=== PATIENT | female | born 1980 | race African-American/Black ===

== ENCOUNTER 2016-06-03 05:38 | Day surgery (SDC) | payer OTHER ==
[~2016-06-03] VITALS: Ht 162.6 cm; Wt 118.8 kg
--- NOTE | ~2016-06-03 | O ---
[facility] [place] [address] OPERATIVE REPORT Name: MEGAN KAPLAN Room #: 150-8 [facility]#: [id number] Admission: 06/03/16 Attend Phys: Negro Nicolas MD Discharge: Date of : 76 Report #: [id number] THIS REPORT FOR: //name// CC: Odessa Henry MD DATE OF SERVICE: 06/03/2016 PREOPERATIVE DIAGNOSIS: Carcinoma, right breast. POSTOPERATIVE DIAGNOSIS: Carcinoma, right breast, final pathology pending. OPERATION: 1. Lymphatic mapping. 2. Right breast segmental resection with wire localization and specimen x-ray. 3. Placement of BioZorb tissue marker. 4. Right axillary sentinel lymph node resection x 3. SURGEON: Negro Nicolas MD. HEALTH AND HUMAN PERFORMANCE PROFESSOR: Kody Kahn MS3. SECOND SEISMIC ENGINEER: Agnieszka Mahoney MS3. ANESTHESIA: General. DESCRIPTION OF PROCEDURE: The patient was taken to Nuclear Medicine and the radiologist injected technetium sulfur colloid into the right breast as per protocol. Lymphoscintigraphy demonstrated a hot spot in the right axilla, which was marked by the radiologist. The radiologist also performed wire localization for the tumor and biopsy clip in the lower outer right breast. The patient was brought to the operating room for a general anesthetic. Lymphatic mapping was performed using the gamma probe and we confirmed the presence of a hot spot in the right axilla, which had a 10-second count of 381. Next, 5 mL of Lymphazurin blue dye were injected into the right breast around the tumor site using sterile technique with alcohol prep. Next, the entire right breast and right axilla were widely prepped with ChloraPrep solution and sterile drapes were applied. A curved circumareolar incision was made in the right lower outer quadrant directly over the anticipated location of the tumor. This was also at the site of the wire insertion. Dissection was carried down through the skin and subcutaneous tissue. A generous lumpectomy or segmental resection was performed in order to remove the breast tissue widely around the shaft and tip of the guidewire as recommended by the radiologist. The specimen was labeled with [facility] [address] [place] [address] OPERATIVE REPORT Name: MEGAN KAPLAN Room #: 150-8 [facility].#: [id number] Admission: 06/03/16 Attend Phys: Negro Nicolas MD Discharge: Date of : 76 Report #: [id number] sutures for orientation purposes. Specimen x-ray confirmed removal of the guidewire and the clip and the tumor together with normal breast tissue all around. The radiologist was happy with the specimen x-ray and so was I. The specimen was given directly to the pathologist. Palpation from within the incision revealed no other suspicious areas. Hemostasis was obtained using electrocautery. We utilized the agri.capitalZorb tissue marker sizer to determine that a 3 x 4 cm BioZorb tissue marker would be a good fit for this lumpectomy. The 3 x 4 cm BioZorb tissue marker was placed into the lumpectomy cavity and was sutured in place using interrupted 3-0 Vicryl. The breast tissue was reapproximated using interrupted 3-0 Vicryl to complete the oncoplastic closure. The skin was approximated using running 4-0 subcuticular PDS. Next, a transverse incision was made in the right axilla near the hotspot location. Dissection was carried down into the axilla with care being taken to avoid injury to the neurovascular structures. We found 3 sentinel nodes, which were each excised, controlling the blood and lymphatic supply using Harmonic scalpel. [place] node #1 had a 10-second count of 1529, it was blue. [place] node #2 had a 10-second count of 162, it was blue. [place] node #3 had a 10-second count of 297, it was also blue. All 3 were submitted to pathology. Palpation revealed no other suspicious nodes nor were there any other blue or radioactive nodes to be found. The post-resection bed count was 10, which was well below 10% of the highest node. Hemostasis was excellent. The incision was closed using running 3-0 Vicryl for the deep layer and running 4-0 PDS for the subcuticular layer. Sterile dressings were applied and the patient was taken to recovery in satisfactory condition. Estimated blood loss was less than 10 mL. By: 1140 [id number] Negro Nicolas MD /nt
--- NOTE | ~2016-06-03 | S ---
[facility] [address] SURGICAL PATH RPT PROCEDURE Name: AIDA KAPLAN Room #: DEP [facility]#: [id number] Admission: 06/03/16 Date of : 76 Discharge: 06/03/16 Report #: [id number] Path Case #: [id number] PATHOLOGY REPORT COLLECTION DATE: 06/03/2016 RECEIVED DATE: 06/03/2016 SUBMITTING PHYS: Dr. Negro Nicolas OTHER PHYS: Dr. Rachelle Henry SPECIMEN(S) RECEIVED: A.Right breast segmental resection B.Right axillary sentinel lymph node #1 C.Right axillary sentinel lymph node #2 D.Right axillary sentinel lymph node #3 * * * * * * * * * * * * FINAL DIAGNOSIS: A. Breast, right breast, segmental resection: - INVASIVE WELL-DIFFERENTIATED DUCTAL ADENOCARCINOMA, SHENG GRADE I, MEASURING 15 MM IN GREATEST DIMENSION AND ASSOCIATED WITH SCLEROSING ADENOSIS. 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 - Margins of resection widely free of invasive malignancy as well as ductal carcinoma in-situ; please see synoptic report. B. Lymph node (one), right axillary sentinel lymph node # 1, biopsy: - Reactive lymph node negative for malignancy. - No isolated tumor cells or micrometastases present on AE1/AE3 immunohistochemical stain (0/1). C. Lymph node (one), right axillary sentinel lymph node # 2, biopsy: - Reactive lymph node negative for malignancy. - No isolated tumor cells or micrometastases present on AE1/AE3 immunohistochemical stain (0/1). D. Lymph node (one), right axillary sentinel lymph node # 3, biopsy: - Reactive lymph node negative for malignancy. - No isolated tumor cells or micrometastases present on AE1/AE3 immunohistochemical stain (0/1). SYNOPTIC CANCER STAGING REPORT Radiologic Finding: Mass or architectural distortion Procedure: Excision with wire-guided localization Lymph Node Sampling: [place] lymph node(s) Specimen Laterality: Right Tumor Site of Invasive Carcinoma: Other: right lateral inferior [facility] [address] [place] [address] SURGICAL PATH RPT PROCEDURE Name: AIDA KAPLAN Room #: [facility]#: [id number] Admission: 06/03/16 Date of : 76 Discharge: 06/03/16 Report #: [id number] Path Case #: [id number] mass Presence of Invasive Carcinoma: Invasive ductal carcinoma (no special type or not otherwise specified) Histologic Grade: Tubule formation: Score 2: 10% to 75% of tumor area forming glandular/tubular structures Nuclear pleomorphism: Score 2: Cells larger than normal with open vesicular nuclei, visible nucleoli, and moderate variability in both size and shape Mitotic Rate: Score 1 (<=3 mitoses per mm2) [place] Histologic Score-Grade I: 3-5 points Ductal Carcinoma In Situ: DCIS is present Negative for extensive intraductal component (EIC) DCIS Architectural Patterns: Cribriform Solid DCIS Necrosis: Not identified Tumor Size: Size of Largest Invasive Carcinoma: Greatest dimension of largest focus of invasion > 1 mm Greatest dimension: 15 mm Additional dimension: 11 mm Additional dimension: 15 mm Skin: Skin is not present No skeletal muscle present Invasive Carcinoma Margins: Margins uninvolved by invasive carcinoma. Distance from closest margin: 6 mm Closest Uninvolved Margin-Lateral Distance of invasive carcinoma to anterior margin: 34 mm Distance of invasive carcinoma to posterior margin: 18 mm Distance of invasive carcinoma to superior margin: 15 mm Distance of invasive carcinoma to inferior margin: 15 mm Distance of invasive carcinoma to medial margin: 35 mm DCIS Margins: Margins uninvolved by DCIS. Distance from closest margin: 5 mm Closest Uninvolved Margin-Lateral Lymph-Vascular Invasion: Not identified Dermal Lymph-Vascular Invasion: No skin present Microcalcifications: Present in DCIS Present in invasive carcinoma Present in non-neoplastic tissue Treatment Effect: No known presurgical therapy Lymph Nodes: Total number of nodes examined [address] [address] SURGICAL PATH RPT PROCEDURE Name: AIDA KAPLAN [place] Room #: DEP [facility].#: [id number] Admission: 06/03/16 Date of : 76 Discharge: 06/03/16 Report #: [id number] Path Case #: [id number] (sentinel and nonsentinel): 3 Micro / Macro Metastases not identified Number of Lymph Nodes with Isolated Tumor Cells (<= 0.2 mm and <= 200 cells) - none Number of [place] Lymph Nodes examined: 3 Method of Evaluation of [place] Lymph Nodes: H-E, multiple levels Method of Evaluation of [place] Lymph Nodes: Immunohistochemistry Estrogen Receptor: Performed on another specimen, number: [id number] Results from other specimen: 95.3% Progesterone Receptor: Performed on another specimen, number: [id number] Results from other specimen: 99.1% HER2 Immunoperoxidase Results: Performed on another specimen, number: [id number] Results from other specimen: 1+ In Situ Hybridization (FISH or CISH) for HER2 Results: Not performed Other Ancillary Studies: Performed on another specimen Specimen (accession number): [id number] Name of test: Ki-67 Results: 1+ TNM Descriptor(s): Primary Tumor (Invasive Carcinoma) (pT): pT1c: Tumor >10 mm but <= 20 mm in greatest dimension Category (pN): pN0 (i-): No regional lymph node metastases histologically, negative IHC Additional Pathologic Findings: Mass associated with the tumor is sclerosing adenosis COMMENT: Immunohistochemical stains are performed. AE1/AE3 performed on block B1: negative for micrometastases and isolated tumor cells; AE1/AE3 performed on block C1: negative for micrometastases and isolated tumor cells; AE1/AE3 performed on block D1: negative for micrometastases and isolated tumor cells. (IUV:csd; d/t: 06/05/2016) [address] [address] SURGICAL PATH RPT PROCEDURE Name: AIDA KAPLAN [place] Room #: DEP [facility] Regulo#: [id number] Admission: 06/03/16 Date of : 76 Discharge: 06/03/16 Report #: [id number] Path Case #: [id number] PATHOLOGIST: Janette Tucker M.D. REPORT ELECTRONICALLY SIGNED BY: Janette Tucker M.D. DATE/TIME: 06/05/2016 16:53 * * * * * * * * * * * * GROSS PATHOLOGY: A.The specimen is received fresh from the OR labeled "Aida Kaplan, right breast segmental resection, long-lateral, short-superficial." Received on an [facility] map with needle localization wire in place, is an oriented lumpectomy specimen weighing 78.8 grams and measuring 7 cm from medial to lateral by 8 cm from anterior/superficial to posterior/deep by 2.5 cm from superior to inferior. The specimen is fixed in formalin. Reported time out of body is 1054 on 06/03/16. Time placed in formalin is 1115 on 06/03/16. The case is discussed with Dr. Negro Nicolas. (CLW:; d/t: 06/03/16) After appropriate fixation time, the specimen is inked as follows: Lateral orange, medial yellow, superior red, inferior blue, posterior black and anterior green. A needle localization wire is identified. Sectioning reveals a poorly circumscribed area of nodularity with a corresponding possible small previous biopsy site, measuring 1.5 x 1.5 x 1.5 cm. This area appears to be 0.1 cm from the lateral margin, 0.3 cm from the inferior margin, 1.5 cm from the superior margin, 3.5 cm from the medial margin, 1.8 cm from the posterior margin, and 3.4 cm from the anterior margin. Sectioning through the remainder of the specimen reveals a bright yellowpale white fibroadipose cut surface with no additional gross abnormalities identified. The area of nodularity with surrounding tissue and closest margins are entirely submitted in cassettes A1-A6. B. The specimen is received in formalin, labeled "Aida Kaplan, right axillary sentinel lymph node #1". Received is a single possible pale tanpink lymph node, measuring 2.5 x 1.5 x 0.8 cm. The lymph node is bisected and entirely submitted in cassette B1. C. The specimen is received in formalin, labeled "Aida Kaplan, right axillary sentinel lymph node #2". Received is a single possible pale tanpink lymph node, measuring 2.0 x 1.5 x 0.6 cm. The lymph node is bisected and entirely submitted in cassette C1. D. The specimen is received in formalin, labeled "Aida Kaplan, right axillary sentinel lymph node #3". Received is a single possible pale tanpink lymph node, measuring 1.2 x 1.0 x 0.5 cm. The lymph node is bisected and entirely submitted in cassette D1. ([facility]; 06/04/2016) INTRAOPERATIVE CONSULTATION (Yousuf Nicholas M.D.) [address] [address] SURGICAL PATH RPT PROCEDURE Name: AIDA KAPLAN [id number] Admission: 06/03/16 Date of : 76 Discharge: 06/03/16 Report #: [id number] Path Case #: [id number] "Right breast segmental resection": - Oriented breast lumpectomy specimen received and fixed in formalin. (YOLIS:; d/t: 06/03/16) Testing performed by [facility] at [facility] [address], [place] [address] CLINICAL HISTORY: Right breast CA INITIAL CPT CODE(S): A; 88686, 12787 B; 16895, 85478 C; 55169, 36273 D; 35429, 08571 Professional services performed by [facility] at [facility] [address], [place] [address] Technical services performed by [facility] at [address] [place] [address], [address] [address]. [facility] [address] [place] [address] PHONE: [phone] DIRECTOR: Abebe Cedillo M.D. * * * END OF REPORT * * *
[~2016-06-03 05:38] MED LIST: AUGMENTIN 875875 MG PO; COLACE100 MG PO; HYDROCODONE-AP1 EAC6 PO; NORCO 5-325 TA1 EACH PO; NORVASC5 MG PO; OMEPRAZOLE40 MG PO; VICODIN 5-5001 EACH PO
[2016-06-03 07:09] LABS: HEMATOCRIT 37.9 % (37.0-47.0); HEMOGLOBIN 12.6 gm/dL (12.0-15.0); MCH 30.4 pg (26.0-34.0); MCHC 33.2 g/dL (28.0-37.0); MCV 91.6 fL (80.0-100.0); RBC 4.13 mil/uL (4.20-5.00); RDW 14.6 % (10.5-14.5); WBC 5.3 thou/uL (4.0-11.0)
[2016-06-03 07:21] LABS: CALCIUM 8.6 mg/dL (8.5-10.1); CREATININE 0.9 mg/dL (0.6-1.0); POTASSIUM 3.8 mmol/L (3.5-5.1)
[2016-06-03 07:25] LABS: ALBUMIN 3.7 g/dL (3.4-5.0); TOTAL BILIRUBIN 0.3 mg/dL (<0.1-1.0); TOTAL PROTEIN 8.2 g/dL (6.4-8.2)
[2016-06-03 07:30] VITALS: BP 129/89
== END 2016-06-03 13:00 | disposition home or self-care (01) ==
LOC: OR → TBA 05:38 → OR 05:38
PROVIDERS: Specialist
DX: C50.911 Malignant neoplasm of unspecified site of right female breast (principal); I10 Essential (primary) hypertension; G47.33 Obstructive sleep apnea (adult) (pediatric); K21.9 Gastro-esophageal reflux disease without esophagitis
CPT/HCPCS: 50010; 50101; 50386; 50403; 52190; 53332; 56524; 56526; 62110; 62900; 70005

== ENCOUNTER → 2017-03-31 | Outpatient (CLI) | payer OTHER | LOC: RAD 09:36 | DX: R92.8 Other abnormal and inconclusive findings on diagnostic imaging of breast (principal) ==

== ENCOUNTER → 2017-09-29 | Outpatient (CLI) | payer OTHER | LOC: MRI 09:46 → EDSTATUS 15:22 | DX: C50.911 Malignant neoplasm of unspecified site of right female breast (principal) ==

== ENCOUNTER → 2018-04-23 | Outpatient (CLI) | payer OTHER | LOC: RAD 09:51 | DX: Z12.31 Encounter for screening mammogram for malignant neoplasm of breast (principal) ==

== ENCOUNTER → 2018-04-28 | Outpatient (CLI) | payer OTHER | LOC: RAD 11:24 | DX: M25.511 Pain in right shoulder (principal) ==

== ENCOUNTER → 2020-02-03 | Outpatient (CLI) | payer BC, OTHER | LOC: LAB 14:22 | PROVIDERS: ATTEND Family Medicine | DX: Z20.828 Contact with and (suspected) exposure to other viral communicable diseases (principal) ==

== ENCOUNTER → 2020-06-12 | Outpatient (CLI) | payer BC, OTHER | LOC: RAD 11:39 | PROVIDERS: ATTEND Family Medicine | DX: M54.2 Cervicalgia (principal) ==